=== PATIENT | female | born 1990 ===

== ENCOUNTER 2019-01-19 13:40 | Emergency (ER) | payer OTHER ==
[2019-01-19 14:05] VITALS: RESP 18
[2019-01-19 15:21] LABS: BASO # 0.1 K/uL (0.0-0.2); BASO % 0.5 % (0.0-2.0); EOS # 0.1 K/uL (0.0-0.7); EOS % 1.1 % (0.0-4.0); LYMPH # 2.4 K/uL (1.0-4.3); LYMPH % 24.3 % (20.0-40.0); MEAN CELL VOLUME 95.6 fL (81.0-99.0); MEAN CORPUSCULAR HEMOGLOBIN 32.5 pg (27.0-31.0); MEAN PLATELET VOLUME 9.6 fL (7.2-11.7); MONO # 0.8 K/uL (0.0-0.8); MONO % 7.7 % (0.0-10.0); NEUT # 6.5 K/uL (1.8-7.0); NEUT % 66.4 % (50.0-75.0); NRBC % 0.1 % (0.0-2.0); RBC 4.01 Mil/uL (3.80-5.20); RED CELL DISTRIBUTION WIDTH 13.6 % (11.5-14.5); WHITE BLOOD COUNT 9.8 K/uL (4.8-10.8)
[2019-01-19 15:26] LABS: HCG,QUALITATIVE URINE NEGATIVE (NEGATIVE)
[2019-01-19 15:29] LABS: SQUAMOUS EPITHIAL 9 /hpf (0-5); URINE BILIRUBIN NEGATIVE (NEGATIVE); URINE BLOOD NEGATIVE (NEGATIVE); URINE CLARITY Hazy (Clear); URINE COLOR Yellow (YELLOW); URINE GLUCOSE (UA) NORMAL (Normal); URINE LEUKOCYTE ESTERASE NEG Leu/uL (Negative); URINE PROTEIN NEGATIVE (NEGATIVE)
[2019-01-19 15:35] LABS: INR 1.2; PROTHROMBIN TIME 13.4 SECONDS (9.7-12.2)
[2019-01-19 15:38] LABS: ALB/GLOB RATIO 1.2 (1.0-2.1); ALBUMIN 4.3 g/dL (3.5-5.0); ALT/SGPT 10 U/L (9-52); AST/SGOT 26 U/L (14-36); BLOOD UREA NITROGEN 14 mg/dL (7-17); CALCIUM 9.5 mg/dl (8.6-10.4); GFR NON-AFRICAN AMERICAN > 60
--- NOTE | 2019-01-19 16:41 | US ---
Date of service: 01/19/2019 HISTORY: pelvic pain, hx of ovarian cyst, r/o torsion/ruptu COMPARISON: None available. TECHNIQUE: Transvaginal pelvic ultrasound was performed FINDINGS: UTERUS: Measures 8.0 x 3.6 x 3.8 cm. Anteverted, normal in size and appearance. No fibroid or other mass lesion seen. ENDOMETRIUM: Measures 7.0 mm in diameter. Normal in appearance. CERVIX: There is a subcentimeter nabothian cyst in the posterior cervix. RIGHT OVARY: Measures 3.2 x 2.1 x 2.7 cm. No solid mass. Normal flow. LEFT OVARY: Measures 3.1 x 1.7 x 2.0 cm. No solid mass. Normal flow. FREE FLUID: No significant free fluid noted. OTHER FINDINGS: None. IMPRESSION: Subcentimeter nabothian cyst in the posterior cervix. No evidence for ovarian cyst.
--- NOTE | 2019-01-19 17:22 | C.PDOC ---
History Of Present Illness 28 year old female presents to ED with complaint of experiencing ecchymosis to the bilateral thighs for 1 week. Patient states that she feels as though this began after she took out her IUD, which was taken out 5 months ago. Patient states she has increased pain in her pelvic region. Patient has been diagnosed with ovarian cyst and thinks one of them has grown or ruptured. She states that she has not gotten her period in the last 5 months. She denies chest pain, SOB, vomiting, diarrhea, fever, and GI bleed. Time Seen by Provider: 01/19/19 14:20 Chief Complaint (Nursing): Lower Extremity Problem/Injury History Per: Patient History/Exam Limitations: no limitations Onset/Duration Of Symptoms: Days (7) Current Symptoms Are (Timing): Still Present Past Medical History Reviewed: Historical Data, Nursing Documentation, Vital Signs Vital Signs: Last Vital Signs Temp 98 F 01/19/19 14:00 Pulse 64 01/19/19 14:00 Resp 18 01/19/19 14:00 BP 109/72 01/19/19 14:00 Pulse Ox 98 01/19/19 14:00 - Medical History PMH: No Chronic Diseases Surgical History: Appendectomy Family History: States: Unknown Family Hx - Social History Hx Alcohol Use: No Hx Substance Use: No - Immunization History Hx Tetanus Toxoid Vaccination: No Hx Influenza Vaccination: No Hx Pneumococcal Vaccination: No Review Of Systems Constitutional: Negative for: Fever Cardiovascular: Negative for: Chest Pain Respiratory: Positive for: Shortness of Breath Gastrointestinal: Negative for: Vomiting, Diarrhea, Hematochezia, Hematemesis Genitourinary: Positive for: Pelvic Pain Skin: Positive for: Bruising (bilateral thighs) Physical Exam - Physical Exam Appears: Non-toxic, No Acute Distress Skin: Other (bilateral puritic spots on the anterior thighs) Head: Atraumatic, Normacephalic Neck: Normal ROM, Supple Chest: Symmetrical, No Deformity Cardiovascular: Rhythm Regular, No Murmur Respiratory: No Accessory Muscle Use, No Rales, No Rhonchi, No Wheezing Gastrointestinal/Abdominal: Soft, No Tenderness Extremity: Capillary Refill (<2 seconds) Neurological/Psych: Oriented x3, Normal Speech, Normal Cognition ED Course And Treatment - Laboratory Results Result Diagrams: 01/19/19 15:14 01/19/19 15:14 Lab Results: PT 13.4 SECONDS (9.7-12.2) H 01/19/19 15:14 INR 1.2 01/19/19 15:14 APTT 35 SECONDS (21-34) H 01/19/19 15:14 Total Bilirubin 0.7 mg/dL (0.2-1.3) 01/19/19 15:14 AST 26 U/L (14-36) 01/19/19 15:14 ALT 10 U/L (9-52) 01/19/19 15:14 Alkaline Phosphatase 47 U/L (38-126) 01/19/19 15:14 Total Protein 7.8 g/dL (6.3-8.3) 01/19/19 15:14 Albumin 4.3 g/dL (3.5-5.0) 01/19/19 15:14 Globulin 3.5 gm/dL (2.2-3.9) 01/19/19 15:14 Albumin/Globulin Ratio 1.2 (1.0-2.1) 01/19/19 15:14 Urine Color Yellow (YELLOW) 01/19/19 15:14 Urine Clarity Hazy (Clear) 01/19/19 15:14 Urine pH 6.0 (5.0-8.0) 01/19/19 15:14 Ur Specific [place] 1.025 (1.003-1.030) 01/19/19 15:14 Urine Protein Negative mg/dL (NEGATIVE) 01/19/19 15:14 Urine Glucose (UA) Normal mg/dL (Normal) 01/19/19 15:14 Urine Ketones Negative mg/dL (NEGATIVE) 01/19/19 15:14 Urine Blood Negative (NEGATIVE) 01/19/19 15:14 Urine Nitrate Negative (NEGATIVE) 01/19/19 15:14 Urine Bilirubin Negative (NEGATIVE) 01/19/19 15:14 Urine Urobilinogen 4.0 mg/dL (0.2-1.0) H 01/19/19 15:14 Ur Leukocyte Esterase Neg Dany/uL (Negative) 01/19/19 15:14 Urine WBC (Auto) 1 /hpf (0-5) 01/19/19 15:14 Urine RBC (Auto) 2 /hpf (0-3) 01/19/19 15:14 Ur Squamous Epith Cells 9 /hpf (0-5) H 01/19/19 15:14 Urine HCG, Qual Negative (NEGATIVE) 01/19/19 15:14 Urine HCG, Qual Negative (NEGATIVE) 01/19/19 15:14 O2 Sat by Pulse Oximetry: 98 (in RA) - CT Scan/US Transvaginal US Other Rad Studies (CT/US): Interpreted By Me, Read By Radiologist CT/US Interpretation: IMPRESSION: Subcentimeter nabothian cyst in the posterior cervix. No evidence for ovarian cyst. Medical Decision Making Medical Decision Making: Plan: Labs ordered with CMP, CBC, and UA Transvaginal US ordered for patient Patient given Toradol Disposition - Disposition Referrals: [facility] [Outside] Disposition: HOME/ ROUTINE Disposition Time: 17:19 Condition: GOOD Additional Instructions: Follow up with the medical doctor within 1-2 days., Return if worsened Prescriptions: Naproxen [Naprosyn] 500 mg PO BID #20 tab Instructions: Contusion (DC), Ovarian Cyst (DC) Forms: [employer] (Luxembourgish) Print Language: NIGERIEN - Clinical Impression Clinical Impression: Bruise, Ovarian cyst - PA / BAR STAFF / Resident Statement MD/DO has reviewed & agrees with the documentation as recorded. (Soha Henson) - Scribe Statement The provider has reviewed the documentation as recorded by the Scribe (Soha Henson) All medical record entries made by the Scribe were at my direction and personally dictated by me. I have reviewed the chart and agree that the record accurately reflects my personal performance of the history, physical exam, medical decision making, and the department course for this patient. I have also personally directed, reviewed, and agree with the discharge instructions and disposition.
[2019-01-19 17:56] VITALS: BP 110/62; PULSE 79; TEMP 97.6; O2SAT 99
== END 2019-01-19 17:56 | disposition home or self-care (01) ==
LOC: C.ER 13:40
DX: S70.12XA Contusion of left thigh, initial encounter (principal); S70.11XA Contusion of right thigh, initial encounter; X58.XXXA Exposure to other specified factors, initial encounter; N83.209 Unspecified ovarian cyst, unspecified side
CPT/HCPCS: 76830; 80053; 81001; 81025; 84703; 85025; 85610; 85730; 96372; 99284; J1885